=== PATIENT | male | born 1995 | race Caucasian/White ===

== ENCOUNTER 2021-04-12 08:29 | Emergency (ER) | payer OTHER, SELFPAY ==
[2021-04-12] MEDS ORDERED: Fluorescein Opthalmic Strip ONE (08:39)
[2021-04-12] MEDS ORDERED: Tetracaine 0.5% PF 4 ML BOT ONE (08:39)
[2021-04-12] MEDS ORDERED: Erythromycin Base 0.5% Oint 1 GM TUBE ONE (09:09)
== END 2021-04-12 09:10 | disposition home or self-care (01) ==
LOC: CSHERS 08:29
DX: T15.02XA Foreign body in cornea, left eye, initial encounter (principal)
CPT/HCPCS: 99283

== ENCOUNTER 2022-02-11 18:33 | Emergency (ER) | payer SELFPAY ==
[2022-02-11] MEDS ORDERED: Diazepam 5 MG TAB ONE (19:09)
[2022-02-11 19:50] LABS: #Eosinphils 0.1 10x3/uL (0.0-0.5); #Monocytes 0.7 10x3/uL (0.0-1.1); #Neutrophils 5.1 10x3/uL (1.5-8.4); %Basophils 0.3 % (0.0-2.0); %Eosinophils 1.6 % (0.0-6.0); %Lymphocytes 20.8 % (18.0-47.0); %Monocytes 9.2 % (0.0-10.0); Hemoglobin 14.5 g/dL (13.5-17.5); Mean Corpuscular HGB CONC 34.4 g/dL (32.0-36.0); Mean Corpuscular Hemoglobin 30.1 pg (27.0-33.0); Mean Corpuscular Volume 87.7 fl (81.2-95.1); Mean Platelet Volume 10.7 fl (7.4-10.4); Platelet Count 203 10x3/uL (150-450); RBC Distribution Width 12.3 % (11.5-14.5); Red Blood Cell (RBC) Count 4.81 10x6/uL (4.32-5.72); White Blood Cell (WBC) Count 7.5 10x3/uL (3.5-10.5)
[2022-02-11 20:05] LABS: ALT (SGPT) 12 U/L (8-55); AST (SGOT) 15 U/L (5-34); Albumin 4.2 g/dL (3.5-5.0); Alkaline Phosphatase 41 U/L (40-110); Anion Gap 14 mmol/L (10-20); BUN (Urea Nitrogen) 16 mg/dL (8.9-20.6); Bilirubin, Total 0.4 mg/dL (0.2-1.2); CK (CPK) 121 U/L (30-200); Calc. Creatinine Clearance 0 mL/min (70-130); Calcium 9.5 mg/dL (7.8-10.44); Carbon Dioxide 28 mmol/L (22-29); Chloride 101 mmol/L (98-107); Globulin 2.4 g/dL (2.4-3.5); Glucose 129 mg/dL (70-105); Potassium 3.6 mmol/L (3.5-5.1); Protein, Total 6.6 g/dL (6.0-8.3); Sodium 139 mmol/L (136-145)
== END 2022-02-11 21:14 | disposition home or self-care (01) ==
LOC: CSHERS 18:33
DX: T63.091A Toxic effect of venom of other snake, accidental (unintentional), initial encounter (principal)
CPT/HCPCS: 36415; 80053; 82550; 85025; 85610; 85730; 86850; 86900; 86901; 93005